=== PATIENT | male | born 1960 | race Caucasian/White ===

== ENCOUNTER 2019-02-27 06:38 | Inpatient (IN) ==
[2019-02-20 08:45] LABS: URINE SOURCE CLEAN CATCH
--- NOTE | 2019-02-20 08:54 | EKG Report ---
Test Performed on : 02/20/2019 08:33:12 AM Test Reason : PAT Blood Pressure : / mmHG Vent. Rate : 073 BPM Atrial Rate : 073 BPM P-R Int : 186 ms QRS Dur : 094 ms QT Int : 388 ms P-R-T Axes : 063 051 060 degrees QTc Int : 427 ms Normal sinus rhythm. Normal ECG No previous ECGs available Confirmed by David NAM, Yuval ([id number]) on 02/20/2019 5:37:51 PM
[2019-02-20 09:03] LABS: BILIRUBIN URINE NEGATIVE (NEGATIVE); BLOOD URINE NEGATIVE (NEGATIVE); COLOR YELLOW; GLUCOSE URINE NEGATIVE (NEGATIVE); KETONE URINE NEGATIVE (NEGATIVE); LEUKOCYTES URINE NEGATIVE (NEGATIVE); NITRITE URINE NEGATIVE (NEGATIVE); PH URINE 6.5; PROTEIN URINE 50 mg/dL (NEGATIVE); SP GRAVITY URINE 1.021; TURBIDITY URINE CLEAR (CLEAR); UROBILINOGEN URINE NORMAL (NORMAL)
[2019-02-20 09:04] LABS: UR EPITHELIAL CELLS <10 /HPF (<10); URINE BACTERIA NEGATIVE /HPF; URINE RBC <10 /HPF (<10); URINE WBC <10 /HPF (<10)
[2019-02-20 09:14] LABS: BASO# 0.02 X1000 (0.0-0.2); BASO% 0.2 % (0.0-0.8); EOS# 0.18 X1000 (0.0-0.7); EOS% 2.1 % (0.0-10.0); HEMATOCRIT 47.9 % (42.0-52.0); HEMOGLOBIN 16.3 g/dL (14.0-18.0); LYMPH# 2.79 X1000 (1.2-3.4); LYMPH% 33.3 % (20.5-51.1); MCV 94.1 FL (81-99); MONO# 1.08 X1000 (0.11-0.59); MONO% 12.9 % (1.7-9.3); MPV 9.8 FL (7.4-10.4); NEUT# 4.31 X1000 (1.4-6.5); NEUT% 51.5 % (42.2-75.2); PLT 218 X1000 (130-400); RBC 5.09 XMIL (4.7-6.1); RDW 12.6 % (11.5-14.5); WBC 8.38 X1000 (4.8-10.8)
[2019-02-20 09:17] LABS: HEMOGLOBIN A1C 5.3 % (4.8-6.0)
[2019-02-20 09:47] LABS: INR 0.92; PROTIME 12.5 Seconds (11.0-16.0)
[2019-02-20 09:50] LABS: PTT 26.6 Seconds (22.3-41.8)
[2019-02-20 10:26] LABS: AGAP 14; BUN 17 mg/dL (8-22); CALCIUM 9.6 mg/dL (8.8-10.2); CHLORIDE 99 mmol/L (98-107); COSMO 282; CREATININE 0.9 mg/dL (0.7-1.2); ESTIMATED GFR > 60; GLUCOSE 88 mg/dL (70-104); POTASSIUM 4.2 mmol/L (3.5-5.1); SODIUM 141 mmol/L (136-145); TCO2 28 mmol/L (25-35)
[2019-02-27] MEDS ORDERED: REGLAN ONE (06:48)
[2019-02-27] MEDS ORDERED: KEFZOL 1 GM/D5W 2 GM/100 ML IVPB ONE (06:48)
[2019-02-27] MEDS ORDERED: COLACE ONE (06:48)
[2019-02-27] MEDS ORDERED: LYRICA ONE (06:48)
[2019-02-27] MEDS ORDERED: PEPCID ONE (06:48)
[2019-02-27] MEDS ORDERED: CELEBREX ONE (06:48)
[2019-02-27] MEDS ORDERED: LR 1,000 ML ONE (06:49)
[2019-02-27] MEDS ORDERED: DIPRIVAN 1% ONE ×3 (07:04→10:51)
[2019-02-27] MEDS ORDERED: VERSED ONE (07:07)
[2019-02-27] MEDS ORDERED: DURAMORPH ONE (08:14)
[2019-02-27] MEDS ORDERED: MARCAINE 0.25% PF ONE (08:14)
[2019-02-27] MEDS ORDERED: VANCOMYCIN ONE (08:14)
[2019-02-27] MEDS ORDERED: TORADOL ONE (08:14)
[2019-02-27] MEDS ORDERED: CYKLOKAPRON 1,000 MG/NS 2,000 MG/200 ML IVPB ONE (08:15)
[2019-02-27] MEDS ORDERED: SODIUM CHLORIDE 0.9% ONE (08:15)
[2019-02-27] MEDS ORDERED: EXPAREL 1.3% ONE ×2 (08:15→08:16)
[2019-02-27] MEDS ORDERED: NEOSPORIN G.U. IRRIGANT ONE (08:16)
[2019-02-27] MEDS ORDERED: FENTANYL ONE (08:47)
[2019-02-27] MEDS ORDERED: DECADRON ONE (09:33)
[2019-02-27] MEDS ORDERED: ZOFRAN ONE (09:33)
[2019-02-27] MEDS ORDERED: OFIRMEV 1000 MG/ISOTONIC SOLN 1,000 MG/100 ML BOTTLE ONE (09:33)
[2019-02-27 09:49] LABS: URINE SOURCE CATH
[2019-02-27 09:53] LABS: BILIRUBIN URINE NEGATIVE (NEGATIVE); BLOOD URINE NEGATIVE (NEGATIVE); COLOR YELLOW; GLUCOSE URINE NEGATIVE (NEGATIVE); KETONE URINE NEGATIVE (NEGATIVE); LEUKOCYTES URINE NEGATIVE (NEGATIVE); NITRITE URINE NEGATIVE (NEGATIVE); PH URINE 5.5; PROTEIN URINE NEGATIVE (NEGATIVE); SP GRAVITY URINE 1.016; TURBIDITY URINE CLEAR (CLEAR); UR EPITHELIAL CELLS <10 /HPF (<10); URINE BACTERIA NEGATIVE /HPF; URINE RBC <10 /HPF (<10); URINE WBC <10 /HPF (<10); UROBILINOGEN URINE NORMAL (NORMAL)
[2019-02-27] MEDS ORDERED: NS 1,000 ML ONE (11:49)
--- NOTE | 2019-02-27 11:50 | Diag Imaging Result Doc PS360 ---
KNEE 1-2 VIEWS-LEFT - 02/27/2019 INDICATION: left TKA TECHNIQUE: Two views COMPARISON: None FINDINGS: There has been left total knee arthroplasty with patellar resurfacing. Alignment is anatomic. No hardware fracture or loosening. IMPRESSION: No complication. Electronically signed by Omero Loya 02/27/2019 11:48 AM
[2019-02-27] MEDS ORDERED: MORPHINE IV PRN (12:45)
[2019-02-27] MEDS ORDERED: ZOFRAN PO PRN (12:45)
[2019-02-27] MEDS ORDERED: MILK OF MAGNESIA PO PRN (12:45)
[2019-02-27] MEDS ORDERED: OXY IR PO PRN (12:45)
[2019-02-27] MEDS: OXY IR PO PRN ×4 (13:36→23:47)
[2019-02-27] MEDS: NS 1,000 ML IV SCH (13:38)
[2019-02-27] MEDS: TYLENOL PO SCH ×2 (14:55→20:42)
[2019-02-27] MEDS: MORPHINE IV PRN ×2 (14:59→21:38)
[2019-02-27] MEDS: KEFZOL 2 GM/D5W 2 GM/50 ML IVPB IV SCH (16:49)
[2019-02-27] MEDS: PERIDEX MT SCH (20:41)
[2019-02-28] MEDS: MORPHINE IV PRN ×3 (01:10→10:34)
[2019-02-28] MEDS: KEFZOL 2 GM/D5W 2 GM/50 ML IVPB IV SCH (01:10)
[2019-02-28] MEDS: TYLENOL PO SCH ×3 (04:36→09:46)
[2019-02-28] MEDS: OXY IR PO PRN ×2 (04:37→07:51)
[2019-02-28 06:52] LABS: HEMATOCRIT 38.6 % (42.0-52.0); HEMOGLOBIN 13.2 g/dL (14.0-18.0)
[2019-02-28 07:15] LABS: AGAP 13; BUN 11 mg/dL (8-22); CALCIUM 8.5 mg/dL (8.8-10.2); CHLORIDE 99 mmol/L (98-107); COSMO 278; CREATININE 0.7 mg/dL (0.7-1.2); ESTIMATED GFR > 60; GLUCOSE 149 mg/dL (70-104); POTASSIUM 4.2 mmol/L (3.5-5.1); SODIUM 138 mmol/L (136-145); TCO2 26 mmol/L (25-35)
[2019-02-28 07:26] VITALS: BP 130/83
[2019-02-28] MEDS: TOPROL XL PO SCH ×2 (07:53→08:18)
[2019-02-28] MEDS: ASPIRIN PO SCH ×2 (07:53→08:17)
[2019-02-28] MEDS: LAMICTAL PO SCH ×2 (07:54→08:17)
[2019-02-28] MEDS: COZAAR PO SCH ×2 (07:54→08:17)
[2019-02-28] MEDS: PRAVACHOL PO SCH ×2 (07:54→09:46)
[2019-02-28] MEDS: PROZAC PO SCH ×2 (07:55→08:18)
[2019-02-28] MEDS: PERIDEX MT SCH ×2 (07:55→08:18)
[2019-02-28] MEDS ORDERED: ZYLOPRIM PO SCH (09:00)
[2019-02-28] MEDS ORDERED: MAXZIDE 75/50 PO SCH (09:00)
[2019-02-28] MEDS: NS 1,000 ML IV SCH (09:13)
--- NOTE | 2019-02-28 11:31 | ORTHOPAEDICS PROGRESS NOTE ---
DATE: 02/28/2019 SUBJECTIVE: The patient is a pleasant 58-year-old male, who is 1 day status post left total knee arthroplasty. He is currently resting comfortably. OBJECTIVE: On physical exam, patient's left lower extremity wound looks good. There are no signs of infection. He has active dorsiflexion, plantar flexion. He is able to perform straight leg raise, appears to be able to ambulate with physical therapy yesterday. LABS: Pending. IMPRESSION: Postoperative day #1 status post left total knee arthroplasty. PLAN: At this point, we will plan on discharging home after physical therapy. We will arrange for home physical therapy. The patient to follow up on 03/12/2019. cc: Negro Augustin MD
--- NOTE | 2019-02-28 11:44 | OPERATIVE NOTE ---
DATE: 02/27/2019 PREOPERATIVE DIAGNOSIS: Degenerative osteoarthritis of the left knee. POSTOPERATIVE DIAGNOSIS: Degenerative osteoarthritis of the left knee. PROCEDURE: Left total knee arthroplasty with DePuy Attune size 9 posterior stabilized femur, a size 9 tibial tray, a 5 mm rotating platform tibial insert, and a 38 mm medialized anatomic patella. SURGEON: Dr. Augustin. SHIPPING TRACK SUPERVISOR: OMAR Vasquez, who was necessary for purposes of retraction, manipulation of the extremity during the case and improved efficiency. SECOND OUTBOARD MOTOR INSPECTOR: Jori Chaves RN. ANESTHESIA: Spinal. IV FLUIDS: 1500 mL lactated Ringer's. ESTIMATED BLOOD LOSS: 50 mL. TOURNIQUET TIME: 90 minutes at 300 mmHg. COMPLICATIONS: None. INDICATION: The patient is a pleasant 58-year-old male with chronic history of worsening pain and discomfort of the left knee. His pain has progressed to affect his activities of daily living. Given the patient's significant pain and discomfort, a recommendation to proceed with left total knee arthroplasty was offered. Risks and benefits of surgery explained including the risks of anesthesia, , bleeding, infection, failure to relieve pain, postoperative stiffness, nerve injury, blood clots, and other imponderables. All questions were answered. The wished to proceed with surgery. DETAILS OF OPERATION: The patient was taken to the operating room and underwent spinal anesthesia. After adequate anesthesia was obtained, he was placed supine on operating table. The left lower extremity was subsequently prepped and draped in the usual sterile fashion. An Esmarch was used to exsanguinate the left lower extremity. Tourniquet was inflated to 300 mmHg. A standard anterior incision made with a skin knife. Medial and lateral skin envelopes were developed. Standard medial parapatellar arthrotomy was then performed. Patella fat pad was excised. A standard medial parapatellar arthrotomy was then performed. After this had been performed, attention was turned to the patella and it was resected in standard fashion. Patella protective disc was placed. Retractors were then placed. Approximately 1 cm anterior to the PCL insertion, a starting reamer was then passed. An intramedullary guide with a distal cutting block was pinned in position. The distal femoral cut was then performed in standard fashion. A sizing block was placed and measured a size 9. An anterior size 9 cutting block was pinned in position. Anterior, posterior and chamfer cuts were then made. Attention was then turned to the proximal tibia where using the extramedullary guide, the proximal tibia cutting block was pinned in position. It had good alignment confirmed with the alignment andrea. The proximal tibia was then resected. Medial and lateral menisci were excised. A curved osteotome was used to remove the posterior osteophytes off the distal femur. A spacer block was then placed and had good soft tissue balance in both flexion and extension. After this had been performed, attention was turned back to the proximal tibia where a size 9 tibial tray appeared to the correct size. This was pinned in position. This was followed by a central reamer and a fin punch. The box cutting guide was pinned on the distal femur and box cut was performed. A trial femoral component was then placed, 2 lug holes were drilled. A trial tibial insert was then placed and had good soft tissue balancing. Attention was turned back to the patella and a size 38 appeared to be the correct size. The guide was placed in position and 3 holes were drilled. Trial patellar component was placed and good patellofemoral tracking. After this had been performed, the trial components were then removed. Copious irrigation was performed antibiotic pulsatile lavage while vancomycin was mixed with cement on the back table. Sequential cementing was then performed, first of the tibial tray and excess cement was removed with a [place] followed by the femoral component. Excess cement with a [place] followed by trial tibial insert in full extension and axial loading was maintained while the cement cured. Peripheral cement was removed with a small osteotome. Axial loading was maintained while the cement cured. The patellar component was cemented in standard fashion. Patella clamp was placed. While the cement was curing, Exparel was placed in the deep soft tissue, as well as the subcutaneous tissue. After the cement had cured, peripheral cement was removed with a small osteotome. The 5 mm rotating platform tibial insert appeared to be the correct size. The trial insert was removed. Exparel was placed in the deep posterior capsule. The wound was copiously irrigated once again. The 5 mm rotating platform tibial insert was then placed. The knee was then carried through range of motion, had good range of motion, good soft tissue balance and good patellofemoral tracking. A / Hemovac drain was placed and was not sewn in. The wound was copiously irrigated once again. Number 1 Vicryl was used to repair the arthrotomy followed by 2-0 Vicryl to repair the subcutaneous tissue, and skin juliana. Adaptic, sterile 4 x 4s, Webril, cryo unit, and Dennis wrap were applied to the left lower extremity. Patient tolerated the procedure well and was transferred to the recovery room in stable condition. cc: Negro Augustin MD
== END 2019-02-28 10:47 | disposition home health service (06) | DRG 470 ==
LOC: OR 06:38 → 4N 06:38 → OBSVTOIN 10:18
PROVIDERS: ADMIT Orthopaedic Surgery Adult Reconstructive Orthopaedic Surgery; ATTEND Orthopaedic Surgery Adult Reconstructive Orthopaedic Surgery